=== PATIENT | female | born 1950 | race Caucasian/White ===

== ENCOUNTER → 2016-08-15 | Day surgery (SDC) | payer MEDICARE, OTHER ==
[~2016-08-15] VITALS: Ht 160 cm; Wt 89.8 kg
[~2016-08-15] MED LIST: ALEVE220 MG PO; ASPIRIN EC81 MG PO; COLLAGEN PLUS1 EACH PO; DYAZIDE 37.5-21 EACH PO; FIBER CHOICE C1.5 GM PO; FISH OIL OMEGA1 EAC2 PO; LOPRESSOR50 MG PO; LYSINE1000 MG PO; OMEPRAZOLE40 MG PO; PERCOCET 5-3251 EACH PO; PROBIOTIC1 EAC1 PO; PROVENTIL OR V6.7 GM INH; THERA-VITE W/ B1 TAB PO; WELLBUTRIN SR150 MG PO; ZOCOR40 MG PO; ZYRTEC10 MG PO
== END | disposition disaster alternative care site (69) ==
LOC: GSDC 14:59 → GPOC 15:00
PROC: 3E0R3BZ Introduction of Anesthetic Agent into Spinal Canal, Percutaneous Approach (ICD-10-PCS; principal; 2016-08-15)
PROC: 3E0R33Z Introduction of Anti-inflammatory into Spinal Canal, Percutaneous Approach (ICD-10-PCS; 2016-08-15)
DX: M51.27 Other intervertebral disc displacement, lumbosacral region (principal)
CPT/HCPCS: J1030; J1040

== ENCOUNTER → 2016-09-26 | Day surgery (SDC) | payer MEDICARE, OTHER ==
[~2016-09-26] VITALS: Ht 160 cm; Wt 86.9 kg
--- NOTE | ~2016-09-26 | OR ---
PATIENT'S NAME: ZOE ESTEBAN [facility] AGE: 65 Y [address] ROOM: [place] [address] LOCATION: [facility] ADMIT DATE: 09/26/2016 OR/Procedure Report DISCHARGE DATE: FAMILY PHYSICIAN: Kenny Means MD ATTENDING PHYSICIAN: Lucia Aivtia SURGEON: Chance King CRNA LOCKSTITCH COLLAR SETTER: DATE OF PROCEDURE: 09/26/2016 PATIENT OF: Lucia Avitia MD. PREOPERATIVE DIAGNOSIS: Lower back pain with right radiculopathy. POSTOPERATIVE DIAGNOSIS: Lower back pain with right radiculopathy. INDICATIONS: The patient denied any recent anticoagulant use, bleeding disorders, or neurological problems. Diagnostic studies included an MRI which were reviewed. There were no relevant laboratory values. All of her medications were reviewed, and there were no known blood thinners or anything else that would interfere with the performance of an epidural steroid. This is the patient's third epidural steroid. The last two epidural steroid injections were reviewed for placement and for results. After her first epidural steroid placement, she did not have decrease in her discomfort. After the second one, she did. This was #3. The patient was given informed consent. Discussed risks and benefits. We discussed the risks of continued low back pain, neurological injury, bleeding paralysis, nerve trauma, blood clots, etc. The patient agreed to proceed. Also discussed the difference between performance of an epidural steroid injection by landmarks versus fluoroscopy. The patient indicated she was comfortable with proceeding without fluoroscopy, just having it straight done with landmarks. Sterile gloves and a fresh mask were utilized. DESCRIPTION OF PROCEDURE: The patient was placed in a sitting position. Landmarks were identified at the top of her hips to Tuffier's line. Her vertebrae were palpated as well as the L4-L5 interspace. After the back was prepped in a sterile fashion using Betadine solution x3, a sterile fenestrated drape was placed on her back to maintain sterility. 1% lidocaine was infiltrated into the skin and subcutaneous tissue in the area of the needle puncture with a 22- gauge 5/8th inch needle. An 18-gauge Tuohy measuring 3.5 inches was advanced into the epidural space with loss of resistance with preservative-free normal saline. Negative aspiration. It was once again tested for loss of resistance with additional preservative-free normal saline and confirmed. At this point in time, the patient did not have any paresthesias or discomfort. 80 mg of Depo-Medrol was administered mixed with 5 mL of preservative-free normal saline. The patient did feel a little bit of increasing pressure on the right PATIENT'S NAME: ZOE ESTEBAN [facility] AGE: 65 Y [address] ROOM: [place] [address] LOCATION: [facility] ADMIT DATE: 09/26/2016 OR/Procedure Report DISCHARGE DATE: FAMILY PHYSICIAN: Kenny Means MD ATTENDING PHYSICIAN: Lucia Avitia side in the area of her radiculopathy. At no time was there any sharp pain or any discomfort, just some pressure. Once the medication was administered, an additional mL of preservative-free normal saline followed the medication to ensure good spread. The needle was removed. The back was cleaned off. A sterile Band-Aid was placed upon her back. Instructions were reinforced. It was a one attempt, one pass epidural steroid. The patient was placed on the right side for approximately 15 minutes and discharged in good condition. Report was given to the registered nurse, who assumed care of the patient. It should be noted that the patient was also notified to seek medical care emergently should she develop any excruciating low back pain, any sensory or motor changes to her lower extremities, and/or bowel or bladder dysfunction. This would constitute a major complication. The patient verbalized understanding. CHANCE KING CRNA DDRishi/modl /[id number] d: 09/26/162114 t: 10/03/16 1206, OPERATIVE SUMMARY
== END | disposition disaster alternative care site (69) ==
LOC: GPOC 09-24 10:00 → GSDC 12:41 → GPOC 14:00
PROC: 3E0R33Z Introduction of Anti-inflammatory into Spinal Canal, Percutaneous Approach (ICD-10-PCS; principal; 2016-09-26)
DX: M51.17 Intervertebral disc disorders with radiculopathy, lumbosacral region (principal); M51.27 Other intervertebral disc displacement, lumbosacral region
CPT/HCPCS: J1040

== ENCOUNTER 2016-12-25 08:37 | Day surgery (SDC) | payer MEDICARE, OTHER ==
[~2016-12-25] VITALS: Ht 172.7 cm; Wt 85.9 kg
--- NOTE | ~2016-12-25 | OR ---
PATIENT'S NAME: ZOE ESTEBAN [facility] AGE: 66 Y [address] ROOM: [address] [address] LOCATION: [facility] ADMIT DATE: 12/25/2016 OR/Procedure Report DISCHARGE DATE: FAMILY PHYSICIAN: Kenny Means MD ATTENDING PHYSICIAN: Lucia Avitia SURGEON: Lucia Avitia MD AGRICULTURAL ENGINEERING TECHNICIAN: DATE OF PROCEDURE: 12/25/2016 PREOPERATIVE DIAGNOSES: 1. 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 2. Right L4-5 and L5-S1 disc herniation. POSTOPERATIVE DIAGNOSES: 1. 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 2. Right L4-5 and L5-S1 disc herniation. OPERATION PROPOSED: Right L4-5 and L5-S1 partial hemilaminectomy with decompression of the lateral recess on exploration of the L4-L5 and L5-S1 disc spaces. DESCRIPTION OF PROCEDURE: Under general anesthesia, the patient was positioned supine. The back was prepped and draped in the usual fashion. A midline incision was then carried out extending from the spinous processes of L3 all the way to the sacrum. The fascia was incised to the right of the midline. The paraspinal muscles were reflected from the lamina of L3, L4, L5, and the sacrum all on the right side. Starting at the L4-L5 segment, a Segura retractor was then put in place. We then started by drilling of the inferior portion of the lamina of L4. We used fluoroscopy to determine our level. Prior to even beginning that, what we noticed was that the facets were markedly hypertrophied. There was not really much of a distance between the spinous processes or the end of the lamina and the spinous process and the facet. The lamina was literally vertical. So having drilled off the inferior portion of the lamina of L4, we found that there was still significant compression of the dura, both anterior posterior as well as laterally. Consequently, we thus continued to get adequate good decompression. We had to completely remove the hemilaminectomy of L4 and we had to do a medial facetectomy and foraminotomy in order to release the pressure on the L5 nerve root as well. After this was done, decompression was extended lateral to the dura. The dura was quite free. The nerve root was quite free. We then explored the L4-L5 disk. There was no free disc material and extruded and what we saw and thought was the disk herniation was just an osteophyte. Consequently, we left that alone especially as we had adequately decompressed the nerve root. We then directed our attention to the L5-S1 segment. Findings there were similar. We consequently did an L5 hemilaminectomy, medial facetectomy, and PATIENT'S NAME: ZOE ESTEBAN [facility] AGE: 66 Y [address] ROOM: [address] [address] LOCATION: [facility] ADMIT DATE: 12/25/2016 OR/Procedure Report DISCHARGE DATE: FAMILY PHYSICIAN: Kenny Means MD ATTENDING PHYSICIAN: Lucia Avitia foraminotomy also at this site. The other thing was that at both levels, the yellow ligament was quite thick and we removed it in order to decompress both the lateral recess and the nerve roots. At the end, we decompressed the L5 as well as the S1 nerve roots on the right side. After this was done, we then closed in the usual fashion suturing the fascia, subcutaneous fatty layers, and rafa for the skin. Prior to doing this, however, hemostasis was achieved by using Gelfoam soaked in thrombin and leaving this in place for 5 minutes, and when we took the Gelfoam out, there was very minimal bleeding in the epidural space. Throughout the procedure, we used fluoroscopy to continue to confirm where we were, our levels, and just to be sure that the right levels were decompressed and this was the case. So, we used fluoroscopy multiple times during the procedure and as well we carried out the majority of the procedure using the microscope. The patient tolerated the procedure well and was taken to the recovery room. MD EBTH CLEVELAND/modl /[id number] d: 12/25/162 t: 01/15/17 1326, OPERATIVE SUMMARY
--- NOTE | ~2016-12-25 | HP ---
PATIENT'S NAME: ZOE ESTEBAN [facility] AGE: 66 Y [address] ROOM: [place] [address] LOCATION: [facility] ADMIT DATE: 12/25/2016 History & Physical DISCHARGE DATE: 12/26/2016 FAMILY PHYSICIAN: Kenny Means MD ATTENDING PHYSICIAN: Lucia Avitia DATE OF SERVICE: This lady was brought in for an elective decompressive lumbar hemilaminectomy. There were no changes between the findings on the H and P and when she came in to the hospital. Primary complaint then was severe low back pain which was radiating down the right lower extremity. PHYSICAL EXAM: There were no changes. PAST MEDICAL HISTORY, FAMILY HISTORY, SOCIAL HISTORY, MEDICATIONS: No changes. IMPRESSION: Lateral recess stenosis. MD BETH CLEVELAND/morgan /[id number] D: 900 T: 755 HISTORY & PHYSICAL
[~2016-12-25 08:37] MED LIST changes: -PERCOCET 5-3251 EACH PO
--- NOTE | 2016-12-26 03:35 | NUR ---
Patient arrived to room 3301 at 1845, during shift change. VSS, on 1L O2, since dips in the upper 80's when sleeping. She has dangled at the bedside so far. Has tolerated clear and full liquids. Complained of pain prior to bedtime, one percocet at 2100, reassessment was no pain. She has been resting well tonight.
--- NOTE | 2016-12-26 10:40 | NUR ---
Introduced self/role to patient and her Russ, they live in [place]. She is going home yet today. Denied any need for DME or any barriers at home. Added my name to her marker board if something came up.
[2016-12-26] MEDS ORDERED: PERCOCET 5-3251 EACH PO (10:58)
--- NOTE | 2016-12-26 12:20 | NUR ---
Patient had no questions or concerns about discharge intructions. AOx3. VSS. CSM WNL. Shower gaurds and extra dressings were sent home with patient. Her dressing was changed this morning and Dr. Avitia was present for dressing change and said everything looked good. Percocet 5/325mg 1 tab given at 1200. Patient was wheeled to front reading hospitalby to be dicharged home with at 1214.
== END 2016-12-26 12:14 | disposition disaster alternative care site (69) ==
LOC: G3N 08:37 → GSDC 08:37 → UNDOADMIN 08:37 → EDSTATUS 09:00 → G3N 19:02 → GSDC 12-26 12:14
PROC: 0SB20ZZ Excision of Lumbar Vertebral Disc, Open Approach (ICD-10-PCS; principal; 2016-12-25)
PROC: 00NY0ZZ Release Lumbar Spinal Cord, Open Approach (ICD-10-PCS; 2016-12-25)
DX: M48.06 Spinal stenosis, lumbar region (principal); M48.07 Spinal stenosis, lumbosacral region; M51.17 Intervertebral disc disorders with radiculopathy, lumbosacral region; M19.90 Unspecified osteoarthritis, unspecified site; F32.9 Major depressive disorder, single episode, unspecified; I10 Essential (primary) hypertension; E78.00 Pure hypercholesterolemia, unspecified; F41.9 Anxiety disorder, unspecified; M10.00 Idiopathic gout, unspecified site; Z87.891 Personal history of nicotine dependence; Z98.41 Cataract extraction status, right eye; Z98.42 Cataract extraction status, left eye; Z90.710 Acquired absence of both cervix and uterus; Z79.899 Other long term (current) drug therapy; Z79.82 Long term (current) use of aspirin; Z98.890 Other specified postprocedural states
CPT/HCPCS: A9270; G8978; G8979; G8980; J0690; J1100; J2001; J2250; J2405; J3010; J7030